=== PATIENT | female | born 1965 | race Two or more races ===

== ENCOUNTER 2016-12-19 17:45 | Emergency (ER) | payer MEDICARE, MEDICAID ==
[~2016-12-19 17:45] MED LIST: ACCUNEB0.42 MG/ML IH; ACETAMINOPHEN325 M2 PO; ALBUTEROL SULF8.5 GM IH; AMOXICILLIN500 M1 PO; ANEXSIA 7.5/3251 TAB PO; BACTRIM DS TABL1 TAB PO; CIPRO250 MG PO; CIPROFLOXACIN250 MG PO; CRANBERRY500 M3 PO; CYCLOBENZAPRINE10 M1 PO; CYCLOBENZAPRINE5 M1 PO; DICLOFENAC POTA50 M1 PO; FLOVENT HFA10.6 GM IH; HYDROCODON-ACE1 EA16 PO; HYDROCODONE/A1 UDTA PO; HYDROCODONE/APA1 TAB PO; IBUPROFEN200 M3 PO; IBUPROFEN800 M1 PO; KEFLEX500 M3 PO; LEVAQUIN500 MG PO; LEVOTHROID50 MCG PO; MACROBID100 MG/CA1 PO; MACROBID100 MG/CA2 PO; MELOXICAM15 MG PO; MOTRIN600 MG PO; NO HOME MEDICATION; NO MEDS; NORCO 5-325 TA1 EACH PO; NORCO 5/325 TAB1 TAB PO; NORCO 7.5/325 T1 TAB PO; OMEPRAZOLE20 MG PO; PERCOCET 5/3251 TAB PO; PRINIVIL10 MG PO; PRINIVIL40 MG PO; PROAIR HFA8.5 GM INH; RESTORIL30 MG PO; TYLENOL EXTRA500 M1 PO; ULTRAM50 MG PO; VALERIAN PO; ZOFRAN ODT4 MG/UDTAB PO; ZOFRAN4 MG PO; ZOFRAN8 MG PO
== END 2016-12-19 17:49 ==
LOC: EDMED 17:45
DX: M54.41 Lumbago with sciatica, right side (principal); M25.511 Pain in right shoulder; I10 Essential (primary) hypertension; Z86.718 Personal history of other venous thrombosis and embolism; Z88.5 Allergy status to narcotic agent; Z79.899 Other long term (current) drug therapy; Z98.890 Other specified postprocedural states; Z90.49 Acquired absence of other specified parts of digestive tract

== ENCOUNTER 2016-12-25 08:54 | Emergency (ER) | payer MEDICARE, MEDICAID ==
[2016-12-25] MEDS ORDERED: NORCO 5-325 TA1 EACH PO (09:36)
== END 2016-12-25 09:44 ==
LOC: EDMED 08:54
DX: G35 Multiple sclerosis (principal); M54.5 Low back pain; M25.511 Pain in right shoulder; G89.29 Other chronic pain; Z90.89 Acquired absence of other organs; Z90.49 Acquired absence of other specified parts of digestive tract; Z79.899 Other long term (current) drug therapy; Z79.891 Long term (current) use of opiate analgesic

== ENCOUNTER 2017-01-07 10:48 | Emergency (ER) | payer MEDICARE, MEDICAID | END 2017-01-07 12:58 | disposition left against medical advice (07) | LOC: EDMED 10:48 | DX: Z53.21 Procedure and treatment not carried out due to patient leaving prior to being seen by health care provider (principal) ==